=== PATIENT | female | born 1965 | race Caucasian/White ===

== ENCOUNTER 2017-02-12 08:18 | Emergency (ER) | payer OTHER ==
[~2017-02-12] VITALS: Ht 162.6 cm; Wt 72.6 kg
[~2017-02-12 08:18] MED LIST: ACET500C9; ACHD5005 PO; DCS100C; ESCI20TA2; EST025TD; ESTR1TAB24 PO; FAMO20TA5; FAMO20TA5 PO; IBP800T; NAPR-243 PO; OXB5T; OXYC10TA8; PARO10TA21 PO; PARO20TA57 PO; PRAS1TAB2; PRD20T PO; VITAMIN D; [UNRECOGNIZED DRUG - OTHER]
--- NOTE | 2017-02-12 09:26 | ED General ---
General Chief Complaint: Skin/Wound Problems Stated Complaint: BITE ON R HAND Nursing Triage Note: PT HAS RED, EDEMATOUS AREA TO TOP OF R HAND. Nursing Sepsis Screen: No Definite Risk Source of Information: Patient Exam Limitations: No Limitations History of Present Illness Time Seen by Provider: 08:29 Initial Comments This 51-year-old woman presents to the emergency room with right hand erythema, pain, and swelling with some induration between the distal fourth and fifth metacarpals. Symptoms started last night around 18:00. Patient has been treating dermatitis and psoriasis of the fingers under the direction of a clinical geneticist. She has been using steroid cream and an additional cream that she is unsure of. She works at a local [employer]. She denies any injury to the hand. Allergies and Home Medications Allergies Coded Allergies: levofloxacin (Verified Allergy, Severe, 01/04/15) Home Medications Estradiol 1 Mg Tablet, 1 MG PO DAILY, (Reported) Famotidine 20 Mg Tablet, 1 EACH PO BID for 4 Days, Ref 0 Prescribed by: ARIE MAURO on 01/04/15 1726 Paroxetine Hcl 10 Mg Tablet, 10 MG PO DAILY, (Reported) Prednisone 20 Mg Tab, 60 MG PO DAILY for 4 Days, Ref 0 Prescribed by: ARIE MAURO on 01/04/15 1726 Sulfamethoxazole/Trimethoprim 1 Each Tablet, 1 EACH PO TID, #30 Increased dose frequency due to location and severity of infection Prescribed by: NAVEEN KERN on 02/12/17 1002 Constitutional: no symptoms reported EENTM: no symptoms reported Respiratory: no symptoms reported Cardiovascular: no symptoms reported Gastrointestinal: no symptoms reported Genitourinary: no symptoms reported Musculoskeletal: see HPI Skin: see HPI Psychiatric/Neurological: No Symptoms Reported Hematologic/Lymphatic: No Symptoms Reported Past Eewueen-Xnnevk-Avjmct Hx Patient Social History Alcohol Use: Denies Use Recreational Drug Use: No Smoking Status: Never a Smoker 2nd Hand Smoke Exposure: No Recent Foreign Travel: No Contact w/Someone Who Travel: No Recent Infectious Disease Expo: No Seasonal Allergies Seasonal Allergies: No Surgeries HX Surgeries: Yes Surgeries: Appendectomy, Orthopedic, Tonsillectomy Respiratory Hx Respiratory Disorders: No Cardiovascular Hx Cardiac Disorders: No Neurological Hx Neurological Disorders: Yes (FREQUENT HEADACHES) Neurological Disorders: Headaches /Migraines Reproductive System Hx Reproductive Disorders: No Sexually 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 Disease: 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 Genitourinary Hx Genitourinary Disorders: Yes (STRESS INCONTINANCE SINCE DAUGHTER WAS BORN) Gastrointestinal Hx Gastrointestinal Disorders: Yes Gastrointestinal Disorders: Irritable Bowel Musculoskeletal Hx Musculoskeletal Disorders: Yes (HAS CONSTANT PAIN IN NECK, BACK, AND HIPS ) Musculoskeletal Disorders: Back Injury, Chronic Back Pain Endocrine Hx Endocrine Disorders: No HEENT HX ENT Disorders: No Cancer Hx Cancer: No Psychosocial Hx Psychiatric Problems: Yes Behavioral Health Disorders: Anxiety Integumentary HX Skin/Integumentary Disorder: Yes Skin/Integumentary Disorders: Psoriasis Blood Transfusions Hx Blood Disorders: No Physical Exam Vital Signs Vital Sign - Last 12Hours 02/12/17 08:20 Temp 98.2 Pulse 74 Resp 18 B/P (MAP) 138/73 Pulse Ox 99 O2 Delivery Room Air Capillary Refill : Less Than 3 Seconds General Appearance: No Apparent Distress, WD/WN HEENT: Normal ENT Inspection Neck: Normal Inspection Respiratory: Lungs Clear, Normal Breath Sounds, No Accessory Muscle Use, No Respiratory Distress Cardiovascular: Regular Rate, Rhythm, No Edema, No Murmur Extremity: Other (Erythema and edema affecting the dorsum of the right hand centered around the distalbetween the fourth and fifth metacarpal. Erythema extends to the proximal phalanges into the proximal hand. This area is tender, warm, and has blanching erythema.) Neurologic/Psychiatric: Alert, Oriented x3, No Motor/Sensory Deficits, Normal Mood/Affect, fisher seal II-XII Norm as Tested Skin: Warm/Dry, Erythema Progress/Results/Core Measures Results/Orders My Orders Orders - NAVEEN BANUELOS MD Clindamycin Injection (Cleocin Injection (02/12/17 10:00) Medications Given in ED Vital Signs/I&O Blood Pressure Mean: 94 Progress Note : Progress Note Bedside ultrasound was performed. No overt fluid collection could be found to suggest abscess. Small early abscess cannot be completely ruled out. Patient was started on antibiotic therapy with an injection of clindamycin 600 mg IM. [facility]. Strict return precautions were given. Patient reports being up-to-date on her tetanus immunization within 4-5 years. Departure Impression Impression: Primary Impression: Cellulitis of right hand Disposition: 01 HOME, SELF-CARE Condition: Improved Departure-Patient Inst. Decision time for Depature: 09:59 Referrals: [facility] (PCP/Family) Primary Care Physician Patient Instructions: Cellulitis (Skin Infection), Adult (DC) Add. Discharge Instructions: Complete your antibiotics as prescribed. Follow-up with your primary care provider soon as possible, preferably in the next 48 hours. Return to the emergency room if symptoms are worsening, especially if you develop temperatures greater than 100. Keep your hand elevated to the level of your heart is much as possible. All discharge instructions reviewed with patient and/or family. Voiced understanding. Scripts Sulfamethoxazole/Trimethoprim (Bactrim Ds Tablet) 1 Each Tablet 1 EACH PO TID, #30 TAB Increased dose frequency due to location and severity of infection Prov: NAVEEN BANUELOS MD 02/12/17 NAVEEN BANUELOS MD Feb 12, 2017 09:26
[2017-02-12] MEDS ORDERED: CLINDAMYCIN 600 MG/4ML (CLEOCIN) VIAL IM ONE (10:00)
[2017-02-12] MEDS ORDERED: SULF1TAB35 PO (10:02)
[2017-02-12 10:15] VITALS: BP 138/73
[2017-02-13] MEDS ORDERED: HYDR-3812 PO (11:23)
== END 2017-02-12 10:15 | disposition home or self-care (01) ==
LOC: EDUNIT# 08:18 → ER 08:19
DX: L03.113 Cellulitis of right upper limb (principal)
CPT/HCPCS: 96372; 99281

== ENCOUNTER 2017-02-13 08:44 | Emergency (ER) | payer SELFPAY ==
[~2017-02-13] VITALS: Ht 162.6 cm; Wt 72.6 kg
[~2017-02-13 08:44] MED LIST changes: +SULF1TAB35 PO
[2017-02-13 08:50] VITALS: BP 147/64
[2017-02-13 09:21] LABS: BASOPHILS % (AUTO) 0 % (0-10); EOSINOPHILS # (AUTO) 0.2 10^3/uL (0.0-0.3); EOSINOPHILS % (AUTO) 3 % (0-10); LYMPHOCYTES # (AUTO) 2.2 X 10^3 (1.0-4.0); LYMPHOCYTES % (AUTO) 33 % (12-44); MEAN CORPUSCULAR HEMOGLOBIN 32 PG (25-34); MEAN CORPUSCULAR HGB CONC 35 G/DL (32-36); MEAN CORPUSCULAR VOLUME 92 FL (80-99); MEAN PLATELET VOLUME 10.2 FL (7.4-10.4); MONOCYTES # (AUTO) 0.7 X 10^3 (0.0-1.0); MONOCYTES % (AUTO) 10 % (0-12); NEUTROPHILS # (AUTO) 3.8 X 10^3 (1.8-7.8); NEUTROPHILS % (AUTO) 54 % (42-75); PLATELET COUNT 250 10^3/uL (130-400); RED BLOOD COUNT 3.88 10^6/uL (4.35-5.85); RED CELL DISTRIBUTION WIDTH 12.2 % (10.0-14.5); WHITE BLOOD COUNT 6.9 10^3/uL (4.3-11.0)
--- NOTE | 2017-02-13 09:26 | ED Upper Extremity ---
General Chief Complaint: Upper Extremity Stated Complaint: WOUND CHECK Nursing Triage Note: PT R HAND SWOLLEN AND REDDEND, PT SEEN IN ED YESTERDAY,AND HAS GONE LARGER THAN MARKINGS FROM YESTERDAY Nursing Sepsis Screen: No Definite Risk Source: patient Exam Limitations: no limitations History of Present Illness Time seen by provider: 08:50 Initial Comments Here with report of increasing pain and swelling to the right hand. Seen yesterday for the same and started on antibiotics. Today, redness has exceeded the area of the marked lines and swelling is reportedly increased. Denies fever or chills. Denies nausea or vomiting. Reports taking medications as directed. Onset 36 hours ago. Does have a history of psoriasis and has plaques on her hands and fingertips of the affected hand. Onset: other (36 hours) Severity: moderate Pain/Injury Location: right hand Method of Injury: unknown Modifying Factors: Improves With Immobilization, Worse With Movement Allergies and Home Medications Allergies Coded Allergies: levofloxacin (Verified Allergy, Severe, 01/04/15) Home Medications Estradiol 1 Mg Tablet, 1 MG PO DAILY, (Reported) Famotidine 20 Mg Tablet, 1 EACH PO BID for 4 Days, Ref 0 Prescribed by: ARIE MAURO on 01/04/15 1726 Paroxetine Hcl 10 Mg Tablet, 10 MG PO DAILY, (Reported) Prednisone 20 Mg Tab, 60 MG PO DAILY for 4 Days, Ref 0 Prescribed by: ARIE MAURO on 01/04/15 1726 Sulfamethoxazole/Trimethoprim 1 Each Tablet, 1 EACH PO TID, #30 Increased dose frequency due to location and severity of infection Prescribed by: NAVEEN KERN on 02/12/17 1002 Constitutional: see HPI, No chills, No fever, No weakness EENTM: no symptoms reported Respiratory: no symptoms reported Cardiovascular: no symptoms reported Gastrointestinal: no symptoms reported Musculoskeletal: joint pain, muscle pain Skin: see HPI, change in color, lesions Psychiatric/Neurological: No Symptoms Reported All Other Systems Reviewed Negative Unless Noted: Yes Past Dnpwsar-Ilzywo-Hukgpi Hx Patient Social History Alcohol Use: Denies Use Recreational Drug Use: No Smoking Status: Never a Smoker 2nd Hand Smoke Exposure: No Recent Foreign Travel: No Contact w/Someone Who Travel: No Recent Infectious Disease Expo: No Immunizations Up To Date Tetanus Booster (TDap): Less than 5yrs Seasonal Allergies Seasonal Allergies: No Surgeries HX Surgeries: Yes Surgeries: Appendectomy, Orthopedic, Tonsillectomy Respiratory Hx Respiratory Disorders: No Cardiovascular Hx Cardiac Disorders: No Neurological Hx Neurological Disorders: Yes (FREQUENT HEADACHES) Neurological Disorders: Headaches /Migraines Reproductive System Hx Reproductive Disorders: No 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 Genitourinary Hx Genitourinary Disorders: Yes (STRESS INCONTINANCE SINCE DAUGHTER WAS BORN) Gastrointestinal Hx Gastrointestinal Disorders: Yes Gastrointestinal Disorders: Irritable Bowel Musculoskeletal Hx Musculoskeletal Disorders: Yes (HAS CONSTANT PAIN IN NECK, BACK, AND HIPS ) Musculoskeletal Disorders: Back Injury, Chronic Back Pain Endocrine Hx Endocrine Disorders: No HEENT HX ENT Disorders: No Cancer Hx Cancer: No Psychosocial Hx Psychiatric Problems: Yes Behavioral Health Disorders: Anxiety Integumentary HX Skin/Integumentary Disorder: Yes Skin/Integumentary Disorders: Psoriasis Blood Transfusions Hx Blood Disorders: No Reviewed Nursing Assessment Reviewed/Agree w Nursing PMH: Yes Family Medical History Significant Family History: No Pertinent Family Hx Physical Exam Vital Signs Vital Sign - Last 12Hours 02/13/17 08:50 Temp 96.4 Pulse 78 Resp 18 B/P (MAP) 147/64 Pulse Ox 97 Capillary Refill : Less Than 3 Seconds General Appearance: WD/WN, no apparent distress HEENT: PERRL/EOMI, pharynx normal Neck: full range of motion, supple Cardiovascular: regular rate, rhythm, no murmur Respiratory: lungs clear, normal breath sounds Gastrointestinal: non tender, soft Back: normal inspection, no CVA tenderness, no vertebral tenderness Elbow/Forearm: no evidence of injury, normal ROM Hand: Right, infection (redness to the dorsum of the hand and third, fourth and fifth fingers with redness extending past the wrist joint now.), soft tissue tenderness, stiffness, swelling Neurologic/Psychiatric: alert, oriented x 3 Skin: warm/dry, other (erythema and swelling on right hand) Progress/Results/Core Measures Results/Orders Lab Results Laboratory Tests Test 02/13/17 09:00 Range/Units White Blood Count 6.9 4.3-11.0 10^3/uL Red Blood Count 3.88 L 4.35-5.85 10^6/uL Hemoglobin 12.4 11.5-16.0 G/DL Hematocrit 36 35-52 % Mean Corpuscular Volume 92 80-99 FL Mean Corpuscular Hemoglobin 32 25-34 PG Mean Corpuscular Hemoglobin Concent 35 32-36 G/DL Red Cell Distribution Width 12.2 10.0-14.5 % Platelet Count 250 130-400 10^3/uL Mean Platelet Volume 10.2 7.4-10.4 FL Neutrophils (%) (Auto) 54 42-75 % Lymphocytes (%) (Auto) 33 12-44 % Monocytes (%) (Auto) 10 0-12 % Eosinophils (%) (Auto) 3 0-10 % Basophils (%) (Auto) 0 0-10 % Neutrophils # (Auto) 3.8 1.8-7.8 X 10^3 Lymphocytes # (Auto) 2.2 1.0-4.0 X 10^3 Monocytes # (Auto) 0.7 0.0-1.0 X 10^3 Eosinophils # (Auto) 0.2 0.0-0.3 10^3/uL Basophils # (Auto) 0.0 0.0-0.1 10^3/uL Erythrocyte Sedimentation Rate 31 H 0-30 MM/HR Sodium Level 139 135-145 MMOL/L Potassium Level 3.5 L 3.6-5.0 MMOL/L Chloride Level 106 98-107 MMOL/L Carbon Dioxide Level 24 21-32 MMOL/L Anion Gap 9 5-14 MMOL/L Blood Urea Nitrogen 14 7-18 MG/DL Creatinine 0.66 0.60-1.30 MG/DL Estimat Glomerular Filtration Rate > 60 BUN/Creatinine Ratio 21 Glucose Level 104 70-105 MG/DL Lactic Acid Level 0.93 0.50-2.00 MMOL/L Calcium Level 8.8 8.5-10.1 MG/DL Total Bilirubin 0.7 0.1-1.0 MG/DL Aspartate Amino Transf (AST/SGOT) 16 5-34 U/L Alanine Aminotransferase (ALT/SGPT) 21 0-55 U/L Alkaline Phosphatase 42 40-136 U/L C-Reactive Protein High Sensitivity 2.66 H 0.00-0.50 MG/DL Total Protein 6.8 6.4-8.2 G/DL Albumin 4.0 3.2-4.5 G/DL My Orders Orders - BOBBY WILCOX MD Cbc With Automated Diff (02/13/17 09:00) Comprehensive Metabolic Panel (02/13/17 09:00) Hs C Reactive Protein (02/13/17 09:00) Erythrocyte Sedimentation Rate (02/13/17 09:00) Lactic Acid Analyzer (02/13/17 09:00) Blood Culture (02/13/17 09:00) Saline Lock/Iv-Start (02/13/17 09:00) Ceftriaxone Injection (Rocephin Injectio (02/13/17 10:15) Dexamethasone Pf Injection (Decadron Pf (02/13/17 10:14) Medications Given in ED Current Medications Medications Dose Ordered Sig/Ramon Route Start Time Stop Time Status Last Admin Dose Admin Ceftriaxone Sodium 1000 mg/ Sodium Chloride 50 ml @ 100 mls/hr ONCE ONCE IV 02/13/17 10:15 02/13/17 10:44 DC 02/13/17 10:35 100 MLS/HR Vital Signs/I&O Vital Sign - Last 12Hours 02/13/17 08:50 Temp 96.4 Pulse 78 Resp 18 B/P (MAP) 147/64 Pulse Ox 97 Blood Pressure Mean: 91 Progress Note : Progress Note Seen and evaluated. IV, labs and blood cultures ordered. Monitor patient. 1020: Labs reviewed. No significant findings for infection although appears to have some inflammatory response. This may be insect sting related but early cellulitis is still a possibility. We will give dose of Rocephin 1 g IV as well as Decadron 10 mg IV and have her continue antibiotics with recheck tomorrow. This was discussed with patient and family who agree with plan. Discharged home with return precautions. Patient verbalize understanding instructions and agreement with plan. Departure Impression Impression: Primary Impression: Cellulitis of right hand Additional Impression: Insect bite or sting Disposition: 01 HOME, SELF-CARE Condition: Stable Departure-Patient Inst. Decision time for Depature: 10:29 Referrals: [facility] (PCP/Family) Primary Care Physician Patient Instructions: Cellulitis (Skin Infection), Adult (DC), Insect Bites and Stings (DC) Add. Discharge Instructions: All discharge instructions reviewed with patient and/or family. Voiced understanding. Continue home medications as directed. Use ice packs to the affected area as needed. Take medications as prescribed. He may take Tylenol 500 mg one tab every 6 hours with the pain medicine prescribed but do not exceed 4000 mg daily dose of Tylenol (acetaminophen. Return for worse pain, fever, swelling, increasing redness or red streaks up the arm or other concerns as needed. Scripts Hydrocodone/Acetaminophen (Hydrocodon -Acetaminophen 5-325) 1 Each Tablet 1 EACH PO Q6H Y for PAIN-BREAKTHROUGH, #10 TAB 0 Refills Prov: BOBBY WILCOX MD 02/13/17 BOBBY WILCOX MD February 13, 2017 09:26
[2017-02-13 09:39] LABS: ALANINE AMINOTRANSFERASE 21 U/L (0-55); ANION GAP 9 MMOL/L (5-14); ASPARTATE AMINO TRANSFERASE 16 U/L (5-34); BILIRUBIN,TOTAL 0.7 MG/DL (0.1-1.0); BLOOD UREA NITROGEN 14 MG/DL (7-18); BUN/CREATININE RATIO 21; CALCIUM 8.8 MG/DL (8.5-10.1); CARBON DIOXIDE 24 MMOL/L (21-32); CHLORIDE 106 MMOL/L (98-107); CREATININE SERUM 0.66 MG/DL (0.60-1.30); GFR ESTIMATED > 60; GLUCOSE 104 MG/DL (70-105); POTASSIUM 3.5 MMOL/L (3.6-5.0); SODIUM 139 MMOL/L (135-145); TOTAL PROTEIN 6.8 G/DL (6.4-8.2); hs C REACTIVE PROTEIN 2.66 MG/DL (0.00-0.50)
[2017-02-13 10:12] LABS: ERYTHROCYTE SEDIMENTATION RATE 31 MM/HR (0-30)
[2017-02-13] MEDS ORDERED: DEXAMETHASONE PF 10 MG/ML (DECADRON) VIAL IV STA (10:14)
[2017-02-13] MEDS ORDERED: cefTRIAXone INJECTION 1,000 MG in NS (IVPB) 50 ML IV ONE (10:15)
[2017-02-13] MEDS ORDERED: HYDR-3812 PO (11:23)
== END 2017-02-13 11:09 | disposition home or self-care (01) ==
LOC: EDUNIT# 08:44 → ER 08:47
DX: L03.113 Cellulitis of right upper limb (principal); L40.9 Psoriasis, unspecified
CPT/HCPCS: 36415; 80053; 83605; 85025; 85652; 86141; 87040; 96374; 96375

== ENCOUNTER 2018-05-26 20:39 | Emergency (ER) | payer SELFPAY ==
[~2018-05-26] VITALS: Ht 162.6 cm; Wt 79.4 kg
[2018-05-26] MEDS ORDERED: fentaNYL INJECTION 100 MCG/2 ML AMP IVP ONE (20:45)
[2018-05-26] MEDS ORDERED: ONDANSETRON 4 MG/2 ML (SDV) Z0FRAN IVP ONE (20:45)
--- NOTE | 2018-05-26 20:48 | ED Hip Pain/Injury ---
General Chief Complaint: Hip/Pelvic Problems Stated Complaint: L HIP PAIN, L LEG PAIN Source: patient Exam Limitations: no limitations History of Present Illness Date Seen by Provider: May 26, 2018 Time Seen by Provider: 20:44 Initial Comments To ER with reports of pain after fall per EMS. She was loading a truck which had a ramp on it. She fell from about 4 feet landing on her right side. Her left leg somehow was injured during the fall, she believes she scraped the back of it on the edge of the ramp. She has pain and an abrasion just behind the left knee. She did hit her head and has a small goose egg on the back of her head with some right-sided neck pain. No loss of consciousness no headache no nausea no vomiting. She is not on anticoagulation. She reports right lateral lower chest pain worse with deep breathing and worse with palpation. No abdomen pain. She does report some right hip pain posterior and lateral over the iliac region. Timing/Duration: just prior to arrival Severity: moderate Location: hip (R) Method of Injury: fell Allergies and Home Medications Allergies Coded Allergies: levofloxacin (Verified Allergy, Severe, 01/04/15) Home Medications Estradiol 1 Mg Tablet, 1 MG PO DAILY, (Reported) Famotidine 20 Mg Tablet, 1 EACH PO BID Prescribed by: ARIE MAURO on 01/04/15 1726 Hydrocodone Bit/Acetaminophen 1 Each Tablet, 1 EACH PO Q6H PRN for PAIN- BREAKTHROUGH Prescribed by: BOBBY WILCOX on 02/13/17 1123 Hydrocodone/Acetaminophen 1 Each Tablet, 1 EACH PO Q4H PRN for PAIN-MODERATE TO SEVERE Prescribed by: EMERALD CARO on 05/26/18 2200 Paroxetine Hcl 10 Mg Tablet, 10 MG PO DAILY, (Reported) Prednisone 20 Mg Tab, 60 MG PO DAILY Prescribed by: ARIE MAURO on 01/04/15 1726 Sulfamethoxazole/Trimethoprim 1 Each Tablet, 1 EACH PO TID Increased dose frequency due to location and severity of infection Prescribed by: NAVEEN KERN on 02/12/17 1002 Patient Home Medication List Home Medication List Reviewed: Yes Constitutional: see HPI EENTM: see HPI Respiratory: no symptoms reported Cardiovascular: see HPI, chest pain Genitourinary: no symptoms reported Musculoskeletal: see HPI Skin: see HPI Psychiatric/Neurological: No Symptoms Reported Past Addgufb-Jqwddi-Nyztak Hx Patient Social History Alcohol Use: Denies Use Recreational Drug Use: No Smoking Status: Former Smoker Type Used: Cigarettes 2nd Hand Smoke Exposure: No Recent Foreign Travel: No Contact w/Someone Who Travel: No Recent Hopitalizations: Yes Immunizations Up To Date Tetanus Booster (TDap): Less than 5yrs PED Vaccines UTD: Yes Seasonal Allergies Seasonal Allergies: No Past Medical History Surgeries: Yes Appendectomy, Orthopedic, Tonsillectomy Respiratory: No Cardiac: No Neurological: Yes (FREQUENT HEADACHES) Headaches /Migraines Reproductive Disorders: No 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 oz. [id number]; 30.03 BMI Method:Stated General Appearance: No Apparent Distress, WD/WN, Other (alert and oriented no distress. She speaks in full sentences.) HEENT: PERRL/EOMI, TMs Normal, Normal ENT Inspection, Pharynx Normal Neck: Tender Lateral; No Tender Midline Cardiovascular: Regular Rate, Rhythm, Normal Peripheral Pulses, Other (right anterolateral lower chest is tender to palpation) Respiratory: Normal Breath Sounds, No Accessory Muscle Use, No Respiratory Distress Gastrointestinal: Normal Bowel Sounds, Non Tender, Soft Extremity: Normal Capillary Refill, Other (she is able to move all extremities , including the right leg which is painful but she is able to flex the hip about 30 off the bed on her own.) Neurologic/Psychiatric: Alert, Oriented x3 Skin: Normal Color, Warm/Dry, Other (abrasion behind the left knee, no ecchymosis seen elsewhere) Progress/Results/Core Measures Results/Orders Lab Results Laboratory Tests Test 05/26/18 20:45 Range/Units White Blood Count 7.1 4.3-11.0 10^3/uL Red Blood Count 4.02 L 4.35-5.85 10^6/uL Hemoglobin 12.5 11.5-16.0 G/DL Hematocrit 36 35-52 % Mean Corpuscular Volume 90 80-99 FL Mean Corpuscular Hemoglobin 31 25-34 PG Mean Corpuscular Hemoglobin Concent 35 32-36 G/DL Red Cell Distribution Width 12.2 10.0-14.5 % Platelet Count 309 130-400 10^3/uL Mean Platelet Volume 9.9 7.4-10.4 FL Neutrophils (%) (Auto) 57 42-75 % Lymphocytes (%) (Auto) 30 12-44 % Monocytes (%) (Auto) 10 0-12 % Eosinophils (%) (Auto) 3 0-10 % Basophils (%) (Auto) 0 0-10 % Neutrophils # (Auto) 4.0 1.8-7.8 X 10^3 Lymphocytes # (Auto) 2.1 1.0-4.0 X 10^3 Monocytes # (Auto) 0.7 0.0-1.0 X 10^3 Eosinophils # (Auto) 0.2 0.0-0.3 10^3/uL Basophils # (Auto) 0.0 0.0-0.1 10^3/uL Sodium Level 142 135-145 MMOL/L Potassium Level 3.9 3.6-5.0 MMOL/L Chloride Level 109 H 98-107 MMOL/L Carbon Dioxide Level 23 21-32 MMOL/L Anion Gap 10 5-14 MMOL/L Blood Urea Nitrogen 20 H 7-18 MG/DL Creatinine 0.73 0.60-1.30 MG/DL Estimat Glomerular Filtration Rate > 60 BUN/Creatinine Ratio 27 Glucose Level 102 70-105 MG/DL Calcium Level 8.6 8.5-10.1 MG/DL Corrected Calcium 8.8 8.5-10.1 MG/DL Total Bilirubin 0.5 0.1-1.0 MG/DL Aspartate Amino Transf (AST/SGOT) 16 5-34 U/L Alanine Aminotransferase (ALT/SGPT) 15 0-55 U/L Alkaline Phosphatase 41 40-136 U/L Total Protein 6.5 6.4-8.2 GM/DL Albumin 3.8 3.2-4.5 GM/DL My Orders Orders - EMERALD CARO PAINT DIPPER Cbc With Automated Diff (05/26/18 20:42) Comprehensive Metabolic Panel (05/26/18 20:42) Fentanyl Injection (Sublimaze Injection (05/26/18 20:45) Ondansetron Injection (Zofran Injectio (05/26/18 20:45) Ct Head/Cervical Spine Wo (05/26/18 20:43) Tibia/Fibula, Left, 2 Views (05/26/18 20:43) Ribs/Unilateral With Chest (05/26/18 20:43) Pelvis With Right Hip 2-3views (05/26/18 20:43) Ct Lumbar Spine Wo (05/26/18 21:41) Rx-Oxycodone/Apap 5-325 Mg (Rx-Percocet (05/26/18 22:15) Oxycodone/Apap 5/325mg Tablet (Percocet (05/26/18 22:15) Medications Given in ED Current Medications Medications Dose Ordered Sig/Ramon Route Start Time Stop Time Status Last Admin Dose Admin Fentanyl Citrate 50 mcg ONCE ONCE IVP 05/26/18 20:45 05/26/18 20:46 DC 05/26/18 20:48 50 MCG Ondansetron HCl 4 mg ONCE ONCE IVP 05/26/18 20:45 05/26/18 20:46 DC 05/26/18 20:48 4 MG Vital Signs/I&O 05/26/18 05/26/18 20:41 20:48 Temp 96.9 96.9 Pulse 86 Resp 18 B/P (MAP) 145/86 (105) Pulse Ox 97 O2 Delivery Room Air Diagnostic Imaging Diagonstic Imaging: Xray Comments NAME: KATRIN RAJPUT [facility] REC#: [id number] PT STATUS: REG ER : 1965 PHYSICIAN: EMERALD CARO APRN ADMIT DATE: 05/26/18/ER Draft Date of Exam:05/26/18 RIBS/UNILATERAL WITH CHEST INDICATION: Fall with chest and right rib pain AP view of the chest is obtained with multiple oblique views of the right ribs. Heart size and pulmonary vascularity are within normal limits. There is no evidence of pneumothorax or significant pleural fluid. There is no evidence of displaced right rib fracture. There is mildly displaced fracture through the right fourth transverse process IMPRESSION: Mildly displaced right fourth transverse process fracture without displaced rib fracture identified. Dictated on workstation # [id number] Dict: 05/26/182133 Trans: 05/26/182136 [facility] [id number] Interpreted by: SHARLENE URIARTE MD Electronically signed by: NAME: KATRIN RAJPUT [facility] REC#: [id number] PT STATUS: REG ER : 1965 PHYSICIAN: EMERALD CARO PAINT DIPPER ADMIT DATE: 05/26/18/ER Draft Date of Exam:05/26/18 PELVIS WITH RIGHT HIP 2-3VIEWS INDICATION: Fall with pelvic and right hip injury and pain. EXAMINATION: AP view of the pelvis was obtained with coned AP and crosstable lateral views of the right hip. There is suggestion of mildly displaced right L3 and L4 spinous process fractures. No other fracture or malalignment is identified. There is mild degenerative change in hip joints. IMPRESSION: 1. Possible right lumbar spinal process fractures. Dedicated view of the lumbar spine may be of use. 2. Otherwise, there is no evidence of acute abnormality seen in the pelvis or right hip. Dictated on workstation # [id number] Dict: 05/26/182130 Trans: 05/26/182134 [facility] [id number] Interpreted by: SHARLENE URIARTE MD Electronically signed by: Departure Communication (Admissions) [id number] report from stat read shows impression #1 there are fractures of the right L2-L3 and L4 transverse processes. There is no evidence of paraspinal or retroperitoneal hematoma. There is no evidence of vertebral or spinal column fracture. Impression Primary Impression: Lumbar transverse process fracture Additional Impression: L2-L4 Right transverse process fracture Disposition: 01 HOME, SELF-CARE Condition: Stable Departure-Patient Inst. Decision time for Depature: 21:56 Referrals: [facility], [facility] (PCP/Family) Primary Care Physician Patient Instructions: Preventing Falls in the Older Adult Add. Discharge Instructions: 1. Pain medication as directed 2. Wear the back brace at all times except when sleeping or showering. You have to get this at a durable medical equipment store of your choosing on Monday. Follow-up with your doctor within 1 week for recheck. Return to ER for any concerns. All discharge instructions reviewed with patient and/or family. Voiced understanding. Scripts Hydrocodone/Acetaminophen ([place] 5-325 Tablet) 1 Each Tablet 1 EACH PO Q4H PRN for PAIN-MODERATE TO SEVERE, #30 TAB Prov: EMERALD CARO APRN 05/26/18 Work/School Note: Work Release Form Date Seen in the Emergency Department: May 26, 2018 Return to Work: May 30, 2018 Other Restrictions Listed Below: No lifting, twisting, or bending until cleared. Copy Copies To 1: CARLOS BLUNT PETER J APRN May 26, 2018 20:48
[2018-05-26 20:53] LABS: BASOPHILS % (AUTO) 0 % (0-10); EOSINOPHILS # (AUTO) 0.2 10^3/uL (0.0-0.3); EOSINOPHILS % (AUTO) 3 % (0-10); HEMATOCRIT 36 % (35-52); HEMOGLOBIN 12.5 G/DL (11.5-16.0); LYMPHOCYTES # (AUTO) 2.1 X 10^3 (1.0-4.0); LYMPHOCYTES % (AUTO) 30 % (12-44); MEAN CORPUSCULAR HEMOGLOBIN 31 PG (25-34); MEAN CORPUSCULAR HGB CONC 35 G/DL (32-36); MEAN CORPUSCULAR VOLUME 90 FL (80-99); MEAN PLATELET VOLUME 9.9 FL (7.4-10.4); MONOCYTES # (AUTO) 0.7 X 10^3 (0.0-1.0); MONOCYTES % (AUTO) 10 % (0-12); NEUTROPHILS % (AUTO) 57 % (42-75); PLATELET COUNT 309 10^3/uL (130-400); RED BLOOD COUNT 4.02 10^6/uL (4.35-5.85); RED CELL DISTRIBUTION WIDTH 12.2 % (10.0-14.5); WHITE BLOOD COUNT 7.1 10^3/uL (4.3-11.0)
[2018-05-26 21:10] LABS: ALANINE AMINOTRANSFERASE 15 U/L (0-55); ALBUMIN 3.8 GM/DL (3.2-4.5); ALKALINE PHOSPHATASE 41 U/L (40-136); BILIRUBIN,TOTAL 0.5 MG/DL (0.1-1.0); BUN/CREATININE RATIO 27; CALCIUM 8.6 MG/DL (8.5-10.1); CARBON DIOXIDE 23 MMOL/L (21-32); CHLORIDE 109 MMOL/L (98-107); CREATININE SERUM 0.73 MG/DL (0.60-1.30); GFR ESTIMATED > 60; GLUCOSE 102 MG/DL (70-105); POTASSIUM 3.9 MMOL/L (3.6-5.0); SODIUM 142 MMOL/L (135-145); TOTAL PROTEIN 6.5 GM/DL (6.4-8.2)
--- NOTE | 2018-05-26 21:34 | Diagnostic Imaging Report ---
INDICATION: Fall with left leg injury. EXAMINATION: AP and lateral views of the left lower leg were obtained. FINDINGS: No acute fracture or dislocation is identified. No abnormal lytic or sclerotic focus is seen, and there is no radiopaque foreign body. IMPRESSION: No acute abnormality. Dictated by: Dictated on workstation # [id number]
--- NOTE | 2018-05-26 21:36 | Diagnostic Imaging Report ---
PROCEDURE: CT head and CT cervical spine without contrast. TECHNIQUE: Multiple contiguous axial images were obtained through the brain and cervical spine without the use of intravenous contrast. Sagittal and coronal reformations through the cervical spine were then performed. INDICATION: Fall with head and neck injury CT head: Comparison is made to the study of 07/19/2012. Ventricles and sulci are within normal limits for size. There is no evidence of intracranial hemorrhage. There is no abnormal mass effect or shift of midline structures. Calvarium is intact. There is mild mural thickening within maxillary sinuses and ethmoid air cells, bilaterally. There does appear to be scalp contusion in the right supraorbital region. IMPRESSION: No CT evidence of acute intracranial abnormality. CT cervical spine: Comparison is made to the study of 07/19/2012. There is mild straightening of normal cervical lordosis. Advanced degenerative facet arthropathy is seen throughout the cervical region, however, no acute fracture or malalignment is identified. There is no evidence of focal hematoma. IMPRESSION: Diffuse degenerative facet arthropathy throughout the cervical spine without CT evidence of acute cervical spinal abnormality. Dictated by: Dictated on workstation # [id number]
--- NOTE | 2018-05-26 21:36 | Diagnostic Imaging Report ---
INDICATION: Fall with pelvic and right hip injury and pain. EXAMINATION: AP view of the pelvis was obtained with coned AP and crosstable lateral views of the right hip. There is suggestion of mildly displaced right L3 and L4 spinous process fractures. No other fracture or malalignment is identified. There is mild degenerative change in hip joints. IMPRESSION: 1. Possible right lumbar spinal process fractures. Dedicated view of the lumbar spine may be of use. 2. Otherwise, there is no evidence of acute abnormality seen in the pelvis or right hip. Dictated by: Dictated on workstation # [id number]
--- NOTE | 2018-05-26 21:38 | Diagnostic Imaging Report ---
INDICATION: Fall with chest and right rib pain AP view of the chest is obtained with multiple oblique views of the right ribs. Heart size and pulmonary vascularity are within normal limits. There is no evidence of pneumothorax or significant pleural fluid. There is no evidence of displaced right rib fracture. There is mildly displaced fracture through the right fourth transverse process IMPRESSION: Mildly displaced right fourth transverse process fracture without displaced rib fracture identified. Dictated by: Dictated on workstation # [id number]
[2018-05-26] MEDS ORDERED: HYDR-757 PO ×2 (21:59→22:00)
[2018-05-26] MEDS ORDERED: RX-OXYCODONE/APAP 5-325 MG #4 TAB PK PO PRN (22:15)
[2018-05-26] MEDS ORDERED: oxyCODONE/APAP 5/325MG (PERCOCET 5) TABLET PO ONE (22:15)
[2018-05-26 23:00] VITALS: BP 156/67
--- NOTE | 2018-05-27 06:40 | Diagnostic Imaging Report ---
PROCEDURE: CT lumbar spine without contrast. TECHNIQUE: Multiple contiguous axial images were obtained through the lumbar spine without the use of intravenous contrast. Sagittal and coronal reformations were then performed. INDICATION: Fall. Low back pain. COMPARISON: None. FINDINGS: There are 5 lumbar type vertebral bodies. Normal alignment. Vertebral body heights preserved. Moderately displaced right L2, L3 and L4 right transverse process fractures. Mild scattered degenerative endplate changes. Moderate facet arthropathy in the lower lumbar spine. No high-grade spinal canal narrowing is evident on this noncontrast exam. No substantial neural foraminal narrowing. Moderate atherosclerotic calcifications including a normal caliber abdominal aorta. The visualized pelvis is intact. IMPRESSION: Right L2, L3 and L4 moderately displaced transverse process fractures. Dictated by: Dictated on workstation # [id number]
== END 2018-05-26 23:01 | disposition home or self-care (01) ==
LOC: EDUNIT# 20:39 → ER 20:42
DX: S32.029A Unspecified fracture of second lumbar vertebra, initial encounter for closed fracture (principal); S32.039A Unspecified fracture of third lumbar vertebra, initial encounter for closed fracture; S32.049A Unspecified fracture of fourth lumbar vertebra, initial encounter for closed fracture; G43.909 Migraine, unspecified, not intractable, without status migrainosus; F41.9 Anxiety disorder, unspecified; Z90.710 Acquired absence of both cervix and uterus; Z87.19 Personal history of other diseases of the digestive system; Z88.1 Allergy status to other antibiotic agents; Z79.52 Long term (current) use of systemic steroids; Z87.891 Personal history of nicotine dependence; Z90.89 Acquired absence of other organs; W17.89XA Other fall from one level to another, initial encounter
CPT/HCPCS: 36415; 70450; 71101; 72125; 72131; 73590; 80053; 85025; 96374; 96375